=== PATIENT | female | born 1970 | race Caucasian/White ===

== ENCOUNTER 2019-07-15 09:27 | Outpatient (CLI) | payer MEDICAID | END 2019-07-15 23:59 | disposition home or self-care (01) | LOC: RAD 09:27 | PROVIDERS: ATTEND Family Medicine | DX: H55.00 Unspecified nystagmus (principal); R51 Headache; R42 Dizziness and giddiness | CPT/HCPCS: 70450 ==

== ENCOUNTER 2020-04-12 05:57 | Inpatient (IN) | payer MEDICAID ==
[~2020-04-12] VITALS: Ht 162.6 cm; Wt 97.9 kg
[2020-04-12] MEDS ORDERED: HYDROmorphone 1 MG/ML, 1ML INJ IVPush ONE (11:30)
[2020-04-12] MEDS ORDERED: HYDROmorphone 1 MG/ML, 1ML INJ ONE (11:42)
[2020-04-12] MEDS ORDERED: LABETALOL 5MG/ML, 20ML IVPush PRN (12:30)
[2020-04-12] MEDS ORDERED: BISACODYL 10 MG SUPP PR PRN (12:30)
[2020-04-12] MEDS ORDERED: POLYETHYLENE GLYCOL 17 GM PACKET PO PRN (12:30)
[2020-04-12] MEDS ORDERED: PLEASE ENTER HEIGHT AND WEIGHT MC SCH (12:30)
[2020-04-12] MEDS ORDERED: ONDANSETRON ODT 4 MG PO PRN (12:30)
[2020-04-12] MEDS ORDERED: MELATONIN 5 MG TABLET PO PRN (12:30)
[2020-04-12] MEDS ORDERED: PROMETHAZINE 25 MG/ML, 1ML IM PRN (12:30)
[2020-04-12] MEDS ORDERED: ONDANSETRON 2MG/ML, 2ML IVPush PRN (12:30)
[2020-04-12 12:38] VITALS: BP 117/65
[2020-04-12] MEDS: METRONIDAZOLE PMX 500MG/100ML 100 ML IV SCH ×2 (15:31→23:09)
[2020-04-12 16:35] LABS: BASOPHILS # (AUTO) 0.07 x10^3/uL (0-0.1); BASOPHILS % (AUTO) 1 % (0-1); EOSINOPHILS % (AUTO) 2 % (1-7); LYMPHOCYTES # (AUTO) 3.47 x10^3/uL (1-3.4); LYMPHOCYTES % (AUTO) 27 % (22-44); MD NO; MEAN CORPUSCULAR HEMOGLOBIN 30.7 pg (27.0-34.8); MEAN CORPUSCULAR HGB CONC 33.5 g/dL (32.4-35.8); MEAN PLATELET VOLUME 8.4 fL (7.4-10.4); MONOCYTES % (AUTO) 6 % (2-9); NEUTROPHILS # (AUTO) 8.53 x10^3/uL (1.8-6.8); NEUTROPHILS % (AUTO) 65 % (42-75); PLATELET COUNT 288 x10^3/uL (130-400); RED BLOOD COUNT 5.01 x10^6/uL (3.82-5.3); RED CELL DISTRIBUTION WIDTH 13.3 % (9.6-15.2)
[2020-04-12 16:39] LABS: ALANINE AMINOTRANSFERASE 31 U/L (12-78); ALBUMIN 3.4 g/dL (3.4-5.0); ANION GAP 9 mmol/L (5-15); CALCIUM 8.6 mg/dL (8.5-10.1); CHLORIDE 104 mmol/L (98-107)
[2020-04-12 16:41] LABS: ALKALINE PHOSPHATASE 53 U/L (45-117); BILIRUBIN,TOTAL 0.9 mg/dL (0.2-1.0); CREATININE 0.46 mg/dL (0.55-1.02); TOTAL PROTEIN 6.9 g/dL (6.4-8.2)
[2020-04-12] MEDS: CYCLOBENZAPRINE 10 MG TABLET PO PRN (17:03)
[2020-04-12] MEDS: CEFTRIAXONE PMX 2GM/50ML 50 ML IV SCH (17:06)
[2020-04-12] MEDS ORDERED: LOSA25TA12 PO (17:36)
[2020-04-12] MEDS ORDERED: GABA300S PO (17:36)
[2020-04-12] MEDS ORDERED: HYDR-3246 PO (17:36)
[2020-04-12] MEDS ORDERED: OMEP20CA20 PO (17:36)
[2020-04-12] MEDS ORDERED: CYCL-259 PO (17:36)
[2020-04-12 19:44] VITALS: BP 129/85
[2020-04-12] MEDS ORDERED: MORPHINE SULFATE 4 MG/ML, 1ML ONE (19:46)
[2020-04-12 19:50] LABS: MICROSCOPIC NOT IND
[2020-04-12] MEDS: morphine SULFATE 10 MG/ML, 1ML IVPush PRN (19:55)
[2020-04-12] MEDS: DIPHENHYDRAMINE 25 MG CAPSULE PO PRN (22:16)
[2020-04-12] MEDS: OXYcodone IR 5MG TABLET PO PRN (23:14)
[2020-04-13 02:19] VITALS: BP 116/70
[2020-04-13] MEDS: OXYcodone IR 5MG TABLET PO PRN ×3 (04:36→14:44)
[2020-04-13] MEDS: METRONIDAZOLE PMX 500MG/100ML 100 ML IV SCH ×2 (06:19→17:14)
[2020-04-13 08:09] VITALS: BP 124/77
[2020-04-13] MEDS: SENNA/DOCUSATE TABLET PO SCH (10:09)
[2020-04-13 10:18] LABS: BASOPHILS # (AUTO) 0.04 x10^3/uL (0-0.1); BASOPHILS % (AUTO) 0 % (0-1); EOSINOPHILS % (AUTO) 3 % (1-7); LYMPHOCYTES # (AUTO) 3.17 x10^3/uL (1-3.4); LYMPHOCYTES % (AUTO) 29 % (22-44); MD NO; MEAN CORPUSCULAR HEMOGLOBIN 30.1 pg (27.0-34.8); MEAN PLATELET VOLUME 7.5 fL (7.4-10.4); MONOCYTES # (AUTO) 0.64 x10^3/uL (0.2-0.8); MONOCYTES % (AUTO) 6 % (2-9); NEUTROPHILS # (AUTO) 6.63 x10^3/uL (1.8-6.8); NEUTROPHILS % (AUTO) 62 % (42-75); PLATELET COUNT 270 x10^3/uL (130-400); RED BLOOD COUNT 4.95 x10^6/uL (3.82-5.3); RED CELL DISTRIBUTION WIDTH 12.9 % (9.6-15.2)
[2020-04-13 10:27] LABS: ALANINE AMINOTRANSFERASE 24 U/L (12-78); ALBUMIN 3.1 g/dL (3.4-5.0); ANION GAP 5 mmol/L (5-15); CALCIUM 8.3 mg/dL (8.5-10.1); CHLORIDE 107 mmol/L (98-107); CREATININE 0.47 mg/dL (0.55-1.02)
[2020-04-13 10:29] LABS: ALKALINE PHOSPHATASE 51 U/L (45-117); BILIRUBIN,TOTAL 0.8 mg/dL (0.2-1.0); TOTAL PROTEIN 6.5 g/dL (6.4-8.2)
[2020-04-13 14:59] VITALS: BP 116/78
[2020-04-13 15:47] LABS: INTERNATIONAL NORMALIZED RATIO 0.97 (0.93-1.1)
[2020-04-13] MEDS: CEFTRIAXONE PMX 2GM/50ML 50 ML IV SCH (15:50)
[2020-04-13 18:55] VITALS: BP 112/73
[2020-04-14 00:53] VITALS: BP 134/74
[2020-04-14] MEDS: METRONIDAZOLE PMX 500MG/100ML 100 ML IV SCH ×3 (00:57→21:30)
[2020-04-14] MEDS: OXYcodone IR 5MG TABLET PO PRN ×3 (02:54→21:40)
[2020-04-14] MEDS: POTASSIUM CHLORIDE 20 MEQ in LACTATED RINGERS 1,000 ML IV SCH ×2 (04:00→22:47)
[2020-04-14 06:21] VITALS: BP 120/72
[2020-04-14] MEDS: SENNA/DOCUSATE TABLET PO SCH (09:27)
[2020-04-14] MEDS ORDERED: CEFOTETAN 1 GM ONE (10:52)
[2020-04-14 13:59] VITALS: BP 113/73
[2020-04-14] MEDS ORDERED: CHLORHEXIDINE 15 ML UDC MM STA (14:21)
[2020-04-14] MEDS ORDERED: MIDAZOLAM 1 MG/ML, 2ML ONE (14:59)
[2020-04-14] MEDS ORDERED: ROCURONIUM 10 MG/ML,10ML ONE (14:59)
[2020-04-14] MEDS ORDERED: PROPOFOL 10 MG/ML, 20ML ONE (14:59)
[2020-04-14] MEDS ORDERED: FENTANYL PF 250 MCG/5ML ONE (14:59)
[2020-04-14] MEDS: CEFTRIAXONE PMX 2GM/50ML 50 ML IV SCH (15:00)
[2020-04-14] MEDS ORDERED: SUCCINYLCHOLINE 20 MG/ML, 10ML ONE (15:01)
[2020-04-14] MEDS ORDERED: EPINEPHRINE 1 MG/ML, 1ML ONE (15:08)
[2020-04-14] MEDS ORDERED: BUPIVACAINE/PF 0.5% ONE (15:08)
[2020-04-14] MEDS ORDERED: ACETAMINOPHEN 325 MG TABLET PO PRN (15:30)
[2020-04-14] MEDS ORDERED: hydrALAzine 20 MG/ML, 1ML IV PRN (15:30)
[2020-04-14] MEDS ORDERED: MEPERIDINE/PF 25MG/0.5ML IVPush PRN (15:30)
[2020-04-14] MEDS ORDERED: PROMETHAZINE 25 MG/ML, 1ML IVPush PRN (15:30)
[2020-04-14] MEDS ORDERED: OXYcodone 5 MG/5 ML ORAL.SOL UDC PO PRN (15:30)
[2020-04-14] MEDS ORDERED: ONDANSETRON 2MG/ML, 2ML IVPush PRN (15:30)
[2020-04-14] MEDS ORDERED: CHLORHEXIDINE 15 ML UDC MM ONE (16:00)
[2020-04-14] MEDS ORDERED: SCOPOLAMINE 1MG PATCH TD ONE ×2 (16:05→16:30)
[2020-04-14] MEDS ORDERED: DEXAMETHASONE 4 MG/ML, 1ML ONE ×2 (16:11)
[2020-04-14] MEDS ORDERED: ONDANSETRON 2MG/ML, 2ML ONE (16:31)
[2020-04-14] MEDS ORDERED: FENTANYL PF 100 MCG/2ML ONE ×2 (17:14→18:10)
[2020-04-14] MEDS ORDERED: HYDROmorphone 1 MG/ML, 1ML INJ ONE ×2 (17:15→18:33)
[2020-04-14] MEDS ORDERED: LORazepam 2 MG/ML, 1ML ONE (17:15)
[2020-04-14] MEDS ORDERED: OXYcodone 5 MG/5 ML ORAL.SOL UDC ONE (17:15)
[2020-04-14] MEDS ORDERED: PROMETHAZINE 25 MG/ML, 1ML ONE (17:21)
[2020-04-14] MEDS: HYDROmorphone 1 MG/ML, 1ML INJ IVPush PRN ×4 (17:31→18:42)
[2020-04-14] MEDS: FENTANYL PF 100 MCG/2ML IV PRN ×4 (17:36→18:20)
[2020-04-14] MEDS: LABETALOL 5MG/ML, 20ML IV PRN ×3 (17:56→18:42)
[2020-04-14] MEDS ORDERED: MEPERIDINE/PF 25MG/ML,1ML ONE (19:05)
[2020-04-14 19:59] VITALS: BP 163/110
[2020-04-14] MEDS: morphine SULFATE 10 MG/ML, 1ML IVPush PRN (21:40)
[2020-04-15 00:45] VITALS: BP 152/88
[2020-04-15] MEDS: DIPHENHYDRAMINE 25 MG CAPSULE PO PRN (01:13)
[2020-04-15] MEDS: OXYcodone IR 5MG TABLET PO PRN ×2 (01:13→09:04)
[2020-04-15] MEDS: CYCLOBENZAPRINE 10 MG TABLET PO PRN (01:13)
[2020-04-15] MEDS: morphine SULFATE 10 MG/ML, 1ML IVPush PRN ×2 (02:36→05:35)
[2020-04-15 04:48] VITALS: BP 177/99
[2020-04-15] MEDS: METRONIDAZOLE PMX 500MG/100ML 100 ML IV SCH ×2 (05:34→13:14)
[2020-04-15 06:00] VITALS: BP 152/91
[2020-04-15 07:00] VITALS: BP 151/87
[2020-04-15] MEDS ORDERED: LOSARTAN 50MG TABLET PO SCH (09:00)
[2020-04-15] MEDS: SENNA/DOCUSATE TABLET PO SCH (09:04)
[2020-04-15] MEDS ORDERED: OXYC5TAB3 PO (11:30)
[2020-04-15 13:14] VITALS: BP 125/83
[2020-04-15] MEDS: POTASSIUM CHLORIDE 20 MEQ in LACTATED RINGERS 1,000 ML IV SCH (14:00)
== END 2020-04-15 14:50 | disposition home or self-care (01) | DRG 418 ==
LOC: MERGE 11:51 → 4NW 11:51 → DCLOUNGE 04-15 14:36
PROVIDERS: ADMIT Family Medicine; ATTEND Internal Medicine
PROC: 0FT44ZZ Resection of Gallbladder, Percutaneous Endoscopic Approach (ICD-10-PCS; principal; 2020-04-14 16:30)
DX: K80.42 Calculus of bile duct with acute cholecystitis without obstruction (principal); F11.20 Opioid dependence, uncomplicated; E66.01 Morbid (severe) obesity due to excess calories; I10 Essential (primary) hypertension; F12.20 Cannabis dependence, uncomplicated; G89.29 Other chronic pain; K21.9 Gastro-esophageal reflux disease without esophagitis; D72.829 Elevated white blood cell count, unspecified; Z68.37 Body mass index [BMI] 37.0-37.9, adult; Z87.891 Personal history of nicotine dependence; Z98.1 Arthrodesis status; Z98.84 Bariatric surgery status; Z03.818 Encounter for observation for suspected exposure to other biological agents ruled out
CPT/HCPCS: 36415; J3490; S0020; 74181; 76700; 78226; 80053; 81003; 83735; 85025; 85610; 87040; 87635; 88304; G0378; J0171; J0696; J1100; J1170; J2175; J2250; J2405; J2550; J2704; J3010; J3480; Q0162; A9537; J0330; J2270; J7120; Q0163

== ENCOUNTER 2021-02-16 05:56 | Outpatient (CLI) | payer MEDICAID ==
[~2021-02-16] VITALS: Ht 162.6 cm; Wt 98.7 kg
[~2021-02-16 05:56] MED LIST: CYCL10TA2 PO; GABA300S PO; HYDR-3248 PO; LOSA25TA12 PO; OMEP20CA20 PO; OXYC5TAB98 PO
[2021-02-16 07:04] VITALS: BP 132/87
[2021-02-16] MEDS ORDERED: SODIUM CHLORIDE 0.9% 1,000 ML IV SCH ×2 (07:30→07:38)
[2021-02-16] MEDS ORDERED: MIDAZOLAM 1 MG/ML, 5ML ONE (07:59)
[2021-02-16] MEDS ORDERED: FENTANYL PF 100 MCG/2ML ONE (07:59)
[2021-02-16] MEDS ORDERED: GADOTERATE 10 MMOL/20ML SYR ONE (12:53)
== END 2021-02-16 10:20 | disposition home or self-care (01) ==
LOC: RAD 05:56
PROVIDERS: ATTEND Nurse Practitioner Gerontology
DX: G89.29 Other chronic pain (principal); M54.5 Low back pain; N95.9 Unspecified menopausal and perimenopausal disorder; M48.061 Spinal stenosis, lumbar region without neurogenic claudication; M48.07 Spinal stenosis, lumbosacral region; M47.26 Other spondylosis with radiculopathy, lumbar region; M47.27 Other spondylosis with radiculopathy, lumbosacral region; I10 Essential (primary) hypertension; G43.909 Migraine, unspecified, not intractable, without status migrainosus; G47.30 Sleep apnea, unspecified; Z79.891 Long term (current) use of opiate analgesic; Z79.899 Other long term (current) drug therapy; Z87.891 Personal history of nicotine dependence; Z88.5 Allergy status to narcotic agent; Z98.1 Arthrodesis status; Z82.61 Family history of arthritis; Z82.49 Family history of ischemic heart disease and other diseases of the circulatory system
CPT/HCPCS: 72110; 72158; 99156; 99157; A9575; J2250; J3010; J7030